=== PATIENT | female | born 1960 | race Caucasian/White ===

== ENCOUNTER → 2018-10-05 | Outpatient (CLI) | payer OTHER ==
--- NOTE | 2018-10-10 11:08 | MM ---
Reason for exam: screening (asymptomatic). Last mammogram was performed 2 years and 8 months ago. History: Patient is nulliparous. Physical Findings: A clinical breast exam by your physician is recommended on an annual basis and results should be correlated with mammographic findings. MG Screening Mammo w CAD Bilateral CC and MLO view(s) were taken. Prior study comparison: January 30, 2016, mammogram, performed at [facility]. December 14, 2014, mammogram, performed at [facility]. December 06, 2013, mammogram, performed at [facility]. November 11, 2012, mammogram, performed at [facility]. There are scattered fibroglandular densities. No suspicious abnormality. No significant changes when compared with prior studies. ASSESSMENT: Negative, BI-RAD 1 RECOMMENDATION: Routine screening mammogram of both breasts in 1 year.
== END | disposition home or self-care (01) ==
LOC: RADMAMWWP 13:30
DX: Z12.31 Encounter for screening mammogram for malignant neoplasm of breast (principal)
CPT/HCPCS: 77067

== ENCOUNTER → 2019-05-04 | Outpatient (CLI) | payer OTHER ==
[2019-05-04 10:07] LABS: Basophils # (A) 0.2 k/uL (0-0.2); Basophils % (A) 1 %; Eosinophils % (A) 0 %; HCT 46.8 % (34.0-46.0); HGB 14.5 gm/dL (11.4-16.0); Lymphocytes % (A) 19 %; MCH 30.4 pg (25.0-35.0); MCHC 30.9 g/dL (31.0-37.0); MCV 98.6 fL (80.0-100.0); Mean Platelet Volume 7.9; Monocytes # (A) 1.1 k/uL (0-1.0); Monocytes % (A) 5 %; Neutrophils # (A) 15.4 k/uL (1.3-7.7); Neutrophils % (A) 73 %; Platelet Count 274 k/uL (150-450); RBC 4.75 m/uL (3.80-5.40); RDW 14.2 % (11.5-15.5); WBC 21.3 k/uL (3.8-10.6)
[2019-05-04 12:15] LABS: Erythrocyte Sedimentation Rate 47 mm/hr (0-20)
== END | disposition home or self-care (01) ==
LOC: LABWHC1 09:32
PROVIDERS: ATTEND Orthopaedic Surgery
DX: M65.9 Synovitis and tenosynovitis, unspecified (principal)
CPT/HCPCS: 36415; 85025; 85652; 86140

== ENCOUNTER → 2019-05-17 | Outpatient (CLI) | payer OTHER ==
[2019-05-17 11:47] LABS: Basophils # (A) 0.2 k/uL (0-0.2); Basophils % (A) 1 %; Eosinophils # (A) 0.3 k/uL (0-0.7); Eosinophils % (A) 3 %; HCT 42.9 % (34.0-46.0); HGB 14.1 gm/dL (11.4-16.0); Lymphocytes # (A) 2.7 k/uL (1.0-4.8); Lymphocytes % (A) 23 %; MCH 31.7 pg (25.0-35.0); MCHC 32.8 g/dL (31.0-37.0); MCV 96.5 fL (80.0-100.0); Monocytes # (A) 0.9 k/uL (0-1.0); Monocytes % (A) 7 %; Neutrophils # (A) 7.3 k/uL (1.3-7.7); Neutrophils % (A) 63 %; Platelet Count 245 k/uL (150-450); RBC 4.44 m/uL (3.80-5.40); RDW 13.6 % (11.5-15.5); WBC 11.7 k/uL (3.8-10.6)
[2019-05-17 14:28] LABS: Erythrocyte Sedimentation Rate 47 mm/hr (0-20)
[2019-05-17 16:19] LABS: Uric Acid 4.7 mg/dL (2.9-7.7)
[2019-05-18 10:57] LABS: HLA B27 NEGATIVE
== END | disposition home or self-care (01) ==
LOC: LABWHC1 11:09
PROVIDERS: ATTEND Orthopaedic Surgery
DX: M25.50 Pain in unspecified joint (principal)
CPT/HCPCS: 36415; 84550; 85025; 85652; 86038; 86140; 86431; 86812

== ENCOUNTER 2019-07-04 07:20 | Day surgery (SDC) | payer OTHER ==
[2019-07-03 12:19] VITALS: BMI 30.4
[~2019-07-04 07:20] MED LIST: LACTATED RINGERS 1,000 ML IV SCH
[2019-07-04 07:45] VITALS: TEMP 98.6
[2019-07-04] MEDS ORDERED: PROPOFOL 10 MG/ML 20 ML VIAL IV ONE (08:08)
--- NOTE | 2019-07-04 08:41 | P.PCN ---
Date of Procedure: 07/04/19 Description of Procedure: BRIEF HISTORY: Patient is a 59-year-old pleasant female scheduled for an elective colonoscopy as a part of fecal abnormalities. The patient reports rectal exam with blood noted on outpatient follow-up. She denies any recent change in bowel habits. She does have family history of colon cancer in her mother. PROCEDURE PERFORMED: Colonoscopy with polypectomy. PREOPERATIVE DIAGNOSIS: Fecal abnormalities, blood per rectum, family history of colon cancer in her mother, last colonoscopy reported per her history as in 2018. ESTIMATED BLOOD LOSS: Minimal. IV sedation per Anesthesia. PROCEDURE: After informed consent was obtained, the patient, was brought into the endoscopy unit. IV sedation was administered by Anesthesia under continuous monitoring. Digital rectal examination was normal. Initially the Olympus CF-190 flexible video colonoscope was then inserted in the rectum, gradually advanced into the cecum without any difficulty. Careful examination was performed as the scope was gradually being withdrawn. Ileocecal valve and the appendiceal orifice were visualized and appeared normal. Prep was poor with a large amount of solid stool throughout the colon which impaired complete visualization of the mucosa. Mucosa of the cecum, ascending colon, transverse colon, descending colon, sigmoid colon, and rectum appeared normal. Multiple small diverticula noted throughout the colon. 2 diminutive 1 mm rectal polyps removed with cold forcep polypectomy. One 3 mm rectal polyp removed with cold forcep polypectomy. Retroflexion was performed in the rectum and no lesions were seen, low-grade internal hemorrhoids. The patient tolerated the procedure well. IMPRESSION: Low-grade internal hemorrhoids. Pandiverticulosis. 3 diminutive rectal polyps removed with cold forcep polypectomy. Poor prep. RECOMMENDATIONS: Findings of this examination were discussed with the patient and her sister. Okay to resume diet. Okay to resume medications. Await pathology from polypectomies. Would recommend repeat colonoscopy in 3-6 months as complete v isualization of the mucosa was impaired by poor prep.
[2019-07-04 08:44] VITALS: PULSE 72; RESP 18
[2019-07-04 09:10] VITALS: BP 131/69
== END 2019-07-04 09:10 | disposition home or self-care (01) ==
LOC: ORWHC2ENDO 07:20
PROVIDERS: ATTEND Internal Medicine
DX: D12.8 Benign neoplasm of rectum (principal); K63.5 Polyp of colon; K57.30 Diverticulosis of large intestine without perforation or abscess without bleeding; K64.8 Other hemorrhoids; Z90.49 Acquired absence of other specified parts of digestive tract; Z90.721 Acquired absence of ovaries, unilateral; R42 Dizziness and giddiness; Z80.0 Family history of malignant neoplasm of digestive organs; F17.200 Nicotine dependence, unspecified, uncomplicated; K21.9 Gastro-esophageal reflux disease without esophagitis; I10 Essential (primary) hypertension; Z79.1 Long term (current) use of non-steroidal anti-inflammatories (NSAID); Z79.899 Other long term (current) drug therapy
CPT/HCPCS: 88305; 45380; J2704

== ENCOUNTER → 2019-07-31 | Outpatient (CLI) | payer OTHER ==
--- NOTE | 2019-08-01 03:58 | MR ---
EXAMINATION TYPE: MR foot RT wo/w con DATE OF EXAM: 07/31/2019 COMPARISON: HISTORY: Rt foot/ankle pain x 9 mos, no trauma CONTRAST: Standard multiplanar, multisequence MRI departmental protocol utilizing 9.5 mL intravenous Gadavist g adolinium contrast. There is subcutaneous edema around the foot and ankle. There is more noticeable edema on the dorsum o f the forefoot. The metatarsals are intact. The toes appear intact. There is 5 mm cyst at the plantar aspect of the fourth MP joint. I see no focal bone destruction. There is no subluxation. Tarsal bone s are intact. Achilles tendon is intact. Plantar fascia is intact. Medial and lateral flexor tendons are intact. IMPRESSION: Subcutaneous edema of the foot and ankle and more severe on the dorsum of the forefoot. No fracture. No evidence of osteomyelitis. Small synovial cysts plantar aspect of the fourth MP joint .
== END | disposition home or self-care (01) ==
LOC: RADMRIMAIN 14:26
PROVIDERS: ATTEND Physician Assistant
DX: M71.371 Other bursal cyst, right ankle and foot (principal)
CPT/HCPCS: 73720; A9585

== ENCOUNTER → 2019-08-02 | Outpatient (CLI) | payer OTHER ==
--- NOTE | 2019-08-03 01:24 | MR ---
EXAMINATION TYPE: MR ankle RT wo/w con DATE OF EXAM: 08/02/2019 COMPARISON: None HISTORY: Rt ankle pain/swelling x 9 mos CONTRAST: Standard multiplanar, multisequence MRI departmental protocol utilizing 9.5 mL intravenous Gadavist g adolinium contrast. There is impacted Achilles tendon. Plantar fascia appears normal. There is subcutaneous edema over th e anterior ankle and hindfoot the medial and lateral flexor tendons of the ankle appear intact. I see no bony destructive process. There is small ankle joint effusion. Joint spaces are fairly normal. IMPRESSION: No fracture. Normal joint spaces. Mild ankle joint effusion suggestive of mild nonspecific synovitis. Subcutaneous edema around the anterior foot and ankle.
== END | disposition home or self-care (01) ==
LOC: RADMRIMAIN 19:56
PROVIDERS: ATTEND Physician Assistant
DX: M25.471 Effusion, right ankle (principal)
CPT/HCPCS: 73723; A9585

== ENCOUNTER → 2019-08-29 | Outpatient (CLI) | payer OTHER ==
--- NOTE | 2019-08-29 13:21 | NM ---
EXAMINATION TYPE: NM bone 3 phase DATE OF EXAM: 08/29/2019 COMPARISON: MR 08/02/2019 HISTORY: Pain and swelling Triple phase bone scintigraphy was performed following the injection of 23.7 mCi Tc 99m MDP. Immedia te images and 4 hours post injection images acquired. FINDINGS: There is no significant abnormal accumulation of radiotracer to suggest metastatic disease to the bon e, no evident osteomyelitis. Uptake within the feet and ankles is symmetric. IMPRESSION: No evident osteomyelitis. Findings felt more likely to represent edema rather than cellulitis.
== END | disposition home or self-care (01) ==
LOC: RADNMMAIN 07:33
DX: M25.571 Pain in right ankle and joints of right foot (principal)
CPT/HCPCS: 78315; A9503

== ENCOUNTER → 2019-12-04 | Outpatient (CLI) | payer OTHER ==
--- NOTE | 2019-12-05 10:37 | ECHOF ---
Referral Reason:Short of breath R06.02 MEASUREMENTS -------- HEIGHT: 172.7 cm WEIGHT: 95.7 kg BP: RVIDd: 3.7 cm (< 3.3) IVSd: 1.4 cm (0.6 - 1.1) LVIDd: 3.8 cm (3.9 - 5.3) LVPWd: 1.6 cm (0.6 - 1.1) IVSs: 2.0 cm LVIDs: 2.5 cm LVPWs: 2.2 cm LAESV Index (A-L): 36.39 ml/m Ao Diam: 3.0 cm (2.0 - 3.7) AV Cusp: 1.5 cm (1.5 - 2.6) MV E Cole: 1.30 m/s MV DecT: 189 ms MV A Cole: 1.29 m/s MV E/A Ratio: 1.01 RAP: 5.00 mmHg RVSP: 43.66 mmHg FINDINGS -------- Sinus rhythm. This was a technically difficult study with suboptimal apical views. The left ventricular size is normal. There is moderate concentric left ventricular hypertrophy. O verall left ventricular systolic function is normal with, an EF between 55 - 60 %. The right ventricle is mildly enlarged. LA is moderately dilated 34-39 ml/m2 The right atrium is mildly enlarged. 5.0mg of Lumason was utilized for enhancement of images Interatrial and interventricular septum intact. There is no evidence of aortic regurgitation. There is no evidence of aortic stenosis. Mild mitral annular calcification present. Moderate mitral regurgitation is present. Mibp-cu-hspptchn tricuspid regurgitation present. There is mild to moderate pulmonary hypertension. The right ventricular systolic pressure, as measured by Doppler, is 43.66mmHg. There is no pulmonic regurgitation present. The aortic root size is normal. IVC Not well visulized. There is no pericardial effusion. CONCLUSIONS -------- 1. Sinus rhythm. 2. This was a technically difficult study with suboptimal apical views. 3. The left ventricular size is normal. 4. There is moderate concentric left ventricular hypertrophy. 5. Overall left ventricular systolic function is normal with, an EF between 55 - 60 %. 6. The right ventricle is mildly enlarged. 7. LA is moderately dilated 34-39 ml/m2 8. The right atrium is mildly enlarged. 9. 5.0mg of Lumason was utilized for enhancement of images 10. Interatrial and interventricular septum intact. 11. There is no evidence of aortic regurgitation. 12. There is no evidence of aortic stenosis. 13. Mild mitral annular calcification present. 14. Moderate mitral regurgitation is present. 15. Ovac-sb-[id number] tricuspid regurgitation present. 16. There is mild to moderate pulmonary hypertension. 17. The right ventricular systolic pressure, as measured by Doppler, is 43.66mmHg. 18. There is no pulmonic regurgitation present. 19. The aortic root size is normal. 20. IVC Not well visulized. 21. There is no pericardial effusion. [employer]: Holly Elizondo RDCS
== END | disposition home or self-care (01) ==
LOC: RADECHMAIN 10:53
DX: I08.1 Rheumatic disorders of both mitral and tricuspid valves (principal); I51.7 Cardiomegaly; I27.20 Pulmonary hypertension, unspecified
CPT/HCPCS: 93306; Q9950

== ENCOUNTER 2020-01-08 09:46 | Day surgery (SDC) | payer OTHER ==
[2020-01-04 11:29] VITALS: BMI 33.0
[~2020-01-08 09:46] MED LIST changes: +LIDOCAINE 1% (10MG/ML) FOR IV START INTRADERMA PRN
[2020-01-08 10:08] VITALS: RESP 18; TEMP 97.8
[2020-01-08] MEDS ORDERED: PROPOFOL 10 MG/ML 20 ML VIAL IV ONE (10:48)
--- NOTE | 2020-01-08 11:17 | P.PCN ---
Date of Procedure: 01/08/20 Description of Procedure: BRIEF HISTORY: Patient is a 60-year-old pleasant female scheduled for an elective colonoscopy as a part of fecal abnormalities. The patient reports rectal exam with blood noted on outpatient follow-up. She denies any recent change in bowel habits. She does have family history of colon cancer in her mother. PROCEDURE PERFORMED: Colonoscopy with polypectomy. PREOPERATIVE DIAGNOSIS: Fecal abnormalities, blood per rectum, family history of colon cancer in her mother, last colonoscopy reported per her history as in 2019 with poor prep. ESTIMATED BLOOD LOSS: Minimal. IV sedation per Anesthesia. PROCEDURE: After informed consent was obtained, the patient, was brought into the endoscopy unit. IV sedation was administered by Anesthesia under continuous monitoring. Digital rectal examination was normal. Initially the Olympus CF-190 flexible video colonoscope was then inserted in the rectum, gradually advanced into the cecum without any difficulty. Careful examination was performed as the scope was gradually being withdrawn. Ileocecal valve and the appendiceal orifice were visualized and appeared normal. Prep was fair with some liquid and solid stool throughout the colon. Mucosa of the cecum, ascending colon, transverse colon, descending colon, sigmoid colon, and rectum which were visualized and appeared normal. Multiple small diverticula noted throughout the colon. 2 diminutive 1 mm rectal polyps removed with cold forcep polypectomy. Retroflexion was performed in the rectum and no lesions were seen, low-grade internal hemorrhoids. The patient tolerated the procedure well. IMPRESSION: Low-grade internal hemorrhoids. Pandiverticulosis. 2 diminutive rectal polyps removed with cold forcep polypectomy. Fair prep. RECOMMENDATIONS: Findings of this examination were discussed with the patient and her sister. Okay to resume diet. Okay to resume medications. Await pathology from polypectomies. Would recommend repeat colonoscopy in 3 years given family history of colon cancer and fair prep.
[2020-01-08 11:51] VITALS: BP 145/77; PULSE 86
== END 2020-01-08 12:05 | disposition home or self-care (01) ==
LOC: ORWHC2ENDO 09:46
PROVIDERS: ATTEND Internal Medicine
DX: K63.5 Polyp of colon (principal); D12.8 Benign neoplasm of rectum; K57.31 Diverticulosis of large intestine without perforation or abscess with bleeding; K64.8 Other hemorrhoids; K08.109 Complete loss of teeth, unspecified cause, unspecified class; I10 Essential (primary) hypertension; J44.9 Chronic obstructive pulmonary disease, unspecified; K21.9 Gastro-esophageal reflux disease without esophagitis; Z72.0 Tobacco use; Z79.899 Other long term (current) drug therapy; Z79.1 Long term (current) use of non-steroidal anti-inflammatories (NSAID); Z79.82 Long term (current) use of aspirin; Z90.49 Acquired absence of other specified parts of digestive tract; Z98.890 Other specified postprocedural states; Z90.721 Acquired absence of ovaries, unilateral; Z80.0 Family history of malignant neoplasm of digestive organs
CPT/HCPCS: 88305; 45380; J2704

== ENCOUNTER → 2021-12-01 | Outpatient (CLI) | payer OTHER ==
--- NOTE | 2021-12-01 15:14 | US ---
EXAMINATION TYPE: US venous doppler duplex LE BI DATE OF EXAM: 12/01/2021 2:38 PM COMPARISON: NONE CLINICAL HISTORY: R22.42 Swelling of left R22.41 Swelling of right lower limb. poor historian, bilat leg pain SIDE PERFORMED: Bilateral TECHNIQUE: The lower extremity deep venous system is examined utilizing real time linear array sonog alex with graded compression, doppler sonography and color-flow sonography. VESSELS IMAGED: Common Femoral Vein Deep Femoral Vein Greater Saphenous Vein * Femoral Vein Popliteal Vein Small Saphenous Vein * Proximal Calf Veins (* superficial vessels) Right Leg: Negative for DVT Left Leg: Negative for DVT Grayscale, color doppler, spectral doppler imaging performed of the deep veins of the bilateral lower extremities. There is normal flow, compressibility, vascular waveforms. IMPRESSION: No ultrasound evidence for acute DVT in either lower extremity.
== END | disposition home or self-care (01) ==
LOC: RADUSWWP 14:12
PROVIDERS: ATTEND Internal Medicine Interventional Cardiology
DX: R22.42 Localized swelling, mass and lump, left lower limb (principal); R22.41 Localized swelling, mass and lump, right lower limb
CPT/HCPCS: 93970

== ENCOUNTER → 2022-04-02 | Outpatient (CLI) | payer OTHER ==
--- NOTE | 2022-04-03 11:09 | CTL ---
EXAMINATION TYPE: CT Low Dose Lung DATE OF EXAM ORDERED: 04/02/2022 HISTORY: . Lung cancer screening CT DLP: 80.[address] CTDI: 2.40 mGy Automated exposure control for dose reduction was used. SCREENING VISIT: COMPARISON: None TECHNIQUE: Low dose computed tomography scan was performed through the chest at 1 mm thick sections a nd reconstructed images in multiple planes at 1 mm and [address] DIAGNOSTIC QUALITY: Satisfactory FINDINGS: There is diffuse emphysematous changes. There is a pleural-based thickening. Subsegmental changes inv olving left lung base most typical of atelectasis. There is no focal pneumonia or pleural effusion. N o pneumothorax. Minimal right apical pleural thickening. No pathologic adenopathy by noncontrast CT scan. Atherosclerotic change of the aorta. Dense coronary artery calcification the heart is mildly enlarged . Hypertrophic and degenerative change of the spine. Question previous cholecystectomy. There is a 2 mm subpleural nodule axial image 46 left upper lobe. There is a 3 mm nodule subpleural axial image 57 right upper lobe IMPRESSION: 1. Diffuse emphysematous changes with the sub-5 mm pulmonary nodules too small to characterize but li bubba benign. 2. Correlate for coronary artery atherosclerotic disease. CT LUNG RAD AND CT CHEST RECOMMENDATION: Lung-Rad 2 Benign Appearance or Behavior: Continue annual sc reening with LDCT in 12 months. S Modifier (other clinically significant findings): S
== END | disposition home or self-care (01) ==
LOC: RADCTMAIN 11:24
DX: Z12.2 Encounter for screening for malignant neoplasm of respiratory organs (principal); Z87.891 Personal history of nicotine dependence
CPT/HCPCS: 71271

== ENCOUNTER → 2022-04-24 | Outpatient (CLI) | payer OTHER | END | disposition home or self-care (01) | LOC: RADMAMWWP 11:33 | DX: Z12.31 Encounter for screening mammogram for malignant neoplasm of breast (principal) | CPT/HCPCS: 77067 ==